=== PATIENT | female | born 1995 | race Hispanic/Latino ===

== ENCOUNTER 2017-10-15 19:44 | Emergency (ER) | payer OTHER, SELFPAY ==
--- NOTE | 2017-10-15 20:40 | RAD REPORT ---
EXAM DESCRIPTION: RAD - Forearm Left - 10/15/2017 8:35 pm CLINICAL HISTORY: Left forearm pain status post injury FINDINGS: No fracture is seen. A radiopaque foreign body is not seen
[2017-10-15] MEDS ORDERED: LIDOCAINE 1% 20 ML MDV ONE (21:07)
[2017-10-15] MEDS ORDERED: LIDOCAINE 1% MPF 5 ML VIAL ONE (21:18)
--- NOTE | 2017-10-15 21:30 | ER ---
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 Transition of care: patient was not received from another setting of care. Complicating Factors: There are no complicating factors for this patient. Onset of symptoms was October 15, 2017. Initial Sepsis Screen: Does the patient meet any 2 criteria? No. Patient's initial sepsis screen is negative. Does the patient have a suspected source of infection? No. Patient's initial sepsis screen is negative. Care prior to arrival: None. 19:50 Method Of Arrival: Ambulatory ak1 19:50 Acuity: BULL 4 ak1 Triage Assessment: 19:52 General: Appears in no apparent distress. Behavior is calm, cooperative. Pain: ak1 Complains of pain in left arm. EENT: No signs and/or symptoms were reported regarding the EENT system. Neuro: No deficits noted. Cardiovascular: No deficits noted. Respiratory: No deficits noted. GI: No signs and/or symptoms were reported involving the gastrointestinal system. : No signs and/or symptoms were reported regarding the genitourinary system. Derm: Wound noted left arm. Musculoskeletal: No signs and/or symptoms reported regarding the musculoskeletal system. Injury Description: Laceration sustained to left arm is clean, 2.6 to 7.5 cm long, not bleeding, was sustained 2-4 hours ago. is bleeding no active bleeding noted. 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 - Social history:: Smoking status: Patient/guardian denies using tobacco. Screenin:53 Abuse screen: Denies threats or abuse. Denies injuries from another. Nutritional ak1 screening: No deficits noted. Tuberculosis screening: No symptoms or risk factors identified. Fall Risk None identified. Assessment: 21:15 General: Appears in no apparent distress. Behavior is calm, cooperative, appropriate ea for age. Pain: Complains of pain in dorsal aspect of left forearm. Neuro: Level of Consciousness is awake, alert, obeys commands, Oriented to person, place, time, situation. Cardiovascular: Patient's skin is warm and dry. Respiratory: Airway is patent Respiratory effort is even, unlabored, Respiratory pattern is regular, symmetrical. Derm: laceration to left forearm. Injury Description: Laceration sustained to dorsal aspect of left forearm is 2.6 to 7.5 cm long. 21:37 Reassessment: Patient and/or family updated on plan of care and expected duration. Pain ea level reassessed. Patient is alert, oriented x 3, equal unlabored respirations, skin warm/dry/pink. Discharge instructions given to patient, verbalized the understanding of instruction. Vital Signs: 19:51 BP 116 / 66; Pulse 75; Resp 18; Temp 97.8(TE); Pulse Ox 100% on R/A; Weight 70.31 kg ak1 (R); Height 5 ft. 4 in. (162.56 cm) (R); Pain 10/10; 19:51 Body Mass Index 26.61 (70.31 kg, 162.56 cm) ak1 ED Course: 19:47 Patient arrived in ED. do 19:51 Triage completed. ak1 19:51 Arm band placed on Patient placed in waiting room, Patient notified of wait time. ak1 19:52 Elaine Marin [facility]-C [facility]. kb 19:52 Sammy Jose MD is Attending Physician. kb 19:54 Patient has correct armband on for positive identification. ak1 20:33 X-ray completed. Portable x-ray completed in exam room. Patient tolerated procedure la2 well. 20:34 XRAY Forearm LEFT In Process Unspecified. EDMS 21:16 Vidhya Adames RN is Primary Nurse. ea 21:31 No provider procedures requiring assistance completed. Patient did not have IV access ea during this emergency room visit. Administered Medications: 21:31 Drug: Lidocaine (1 %) 1 vials {Note: administered by provider.} Volume: 5 ml; Route: ea Infiltration; Outcome: 21:30 Discharge ordered by MD. celis 21:39 Discharged to home ambulatory. ea 21:39 Condition: improved 21:39 Discharge instructions given to patient, Instructed on discharge instructions, follow up and referral plans. Demonstrated understanding of instructions, follow-up care. 21:40 Patient left the ED. ea Signatures: Dispatcher [employer] EDPA Elaine Marin, DIE SET UP WORKER-C DIE SET UP WORKER-Augusta Davis RN RN Lynette Jay Elena RN RN Emi Carlisle2 Corrections: (The following items were deleted from the chart) 21:39 21:37 Reassessment: Patient and/or family updated on plan of care and expected ea duration. Pain level reassessed. Patient is alert, oriented x 3, equal unlabored respirations, skin warm/dry/pink. ea
--- NOTE | 2017-10-15 21:31 | EDPHYS ---
Physician Documentation [facility] Name: Batsheva Guerrero Age: 22 yrs Sex: Female : 1995 Arrival Date: 10/15/2017 Time: 19:47 Bed 12 Private MD: ED Physician Sammy Jose HPI: 10/15 21:35 This 22 yrs old Female presents to ER via Ambulatory with complaints of kb Laceration To Arm. 21:35 The patient has a laceration related to: cleaning up glass and accidentally cut herslef kb occurred at home, and there are no complicating factors. The injury was accidental. The laceration(s) is(are) located on the dorsal aspect of left forearm. Onset: The symptoms/episode began/occurred just prior to arrival. Associated signs and symptoms: The patient has no apparent associated signs or symptoms. The patient has not experienced similar symptoms in the past. The patient has not recently seen a physician. 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 - Social history:: Smoking status: Patient/guardian denies using tobacco. ROS: 21:34 Constitutional: Negative for fever, chills, and weight loss, Cardiovascular: Negative kb for chest pain, palpitations, and edema, Respiratory: Negative for shortness of breath, cough, wheezing, and pleuritic chest pain, Abdomen/GI: Negative for abdominal pain, nausea, vomiting, diarrhea, and constipation, MS/Extremity: Negative for injury and deformity, Neuro: Negative for headache, weakness, numbness, tingling, and seizure. 21:34 Skin: Positive for laceration(s), of the dorsal aspect of left forearm. Exam: 21:34 Constitutional: This is a well developed, well nourished patient who is awake, alert, kb and in no acute distress. Head/Face: Normocephalic, atraumatic. Chest/axilla: Normal chest wall appearance and motion. Nontender with no deformity. No lesions are appreciated. Cardiovascular: Regular rate and rhythm with a normal S1 and S2. No gallops, murmurs, or rubs. Normal PMI, no JVD. No pulse deficits. Respiratory: Lungs have equal breath sounds bilaterally, clear to auscultation and percussion. No rales, rhonchi or wheezes noted. No increased work of breathing, no retractions or nasal flaring. Abdomen/GI: Soft, non-tender, with normal bowel sounds. No distension or tympany. No guarding or rebound. No evidence of tenderness throughout. MS/ Extremity: Pulses equal, no cyanosis. Neurovascular intact. Full, normal range of motion. Neuro: Awake and alert, GCS 15, oriented to person, place, time, and situation. Cranial nerves II-XII grossly intact. Motor strength 5/5 in all extremities. Sensory grossly intact. Cerebellar exam normal. Normal gait. 21:34 Skin: injury, laceration(s), the wound is approximately 4 cm(s), of the dorsal aspect of left forearm, that can be described as clean, no foreign body, linear, without bleeding. Vital Signs: 19:51 BP 116 / 66; Pulse 75; Resp 18; Temp 97.8(TE); Pulse Ox 100% on R/A; Weight 70.31 kg ak1 (R); Height 5 ft. 4 in. (162.56 cm) (R); Pain 10/10; 19:51 Body Mass Index 26.61 (70.31 kg, 162.56 cm) ak1 Laceration: 21:29 Wound Repair of 4cm ( 1.6in ) subcutaneous laceration to dorsal aspect of left forearm. kb Linear shaped.. Distal neuro/vascular/tendon intact. Anesthesia: Wound infiltrated with 10 mls of 1% lidocaine. Wound prep: Extensive cleansing with hibiclenz by de, Wound irrigation with saline by de. Skin closed with 8 5-0 Prolene using interrupted sutures and sterile technique. Dressed with Neosporin. Patient tolerated well. MDM: 21:00 Patient medically screened. kb 21:29 Data reviewed: vital signs, nurses notes. Data interpreted: Pulse oximetry: on room air kb is 100 %. Interpretation: normal. Counseling: I had a detailed discussion with the patient and/or guardian regarding: the historical points, exam findings, and any diagnostic results supporting the discharge/admit diagnosis, radiology results, the need for outpatient follow up, a family practitioner, to return to the emergency department if symptoms worsen or persist or if there are any questions or concerns that arise at home. 10/15 19:53 Order name: XRAY Forearm LEFT; Complete Time: 20:43 ak1 10/15 21:04 Order name: Prolene, Sutures; Complete Time: 21:31 kb 10/15 21:04 Order name: Dressing - Wound; Complete Time: 21:31 kb 10/15 21:04 Order name: Gloves, Sterile; Complete Time: 21:31 kb 10/15 21:04 Order name: Setup Suture Tray; Complete Time: 21:31 kb Administered Medications: 21:31 Drug: Lidocaine (1 %) 1 vials {Note: administered by provider.} Volume: 5 ml; Route: ea Infiltration; Disposition: 10/16 01:35 Co-signature as Attending Physician, Sammy Jose MD. pkrebecca Disposition: 10/15/17 21:30 Discharged to Home. Impression: Laceration without foreign body of left forearm. - Condition is Stable. - Discharge Instructions: Laceration Care, Adult, [id number]. - Medication Reconciliation Form, Thank You Letter, Antibiotic Education, Prescription Opioid Use form. - Follow up: Emergency Department; When: As needed; Reason: Worsening of condition. Follow up: Private Physician; When: 2 - 3 days; Reason: Recheck today's complaints, Continuance of care, Re-evaluation by your physician. Signatures: Dispatcher [employer] EDElaine Turcios, Sammy Rodriguez MD MD [facility] Augusta Valero RN RN ak1 Vidhya Adames RN RN ea Corrections: (The following items were deleted from the chart) 10/15 21:40 21:30 10/15/2017 21:30 Discharged to Home. Impression: Laceration without foreign body ea of left forearm. Condition is Stable. Forms are Medication Reconciliation Form, Thank You Letter, Antibiotic Education, Prescription Opioid Use. Follow up: Emergency Department; When: As needed; Reason: Worsening of condition. Follow up: Private Physician; When: 2 - 3 days; Reason: Recheck today's complaints, Continuance of care, Re-evaluation by your physician. kb
[2017-10-15 21:49] VITALS: BP 116/66; TEMP 97.8; O2SAT 100
== END 2017-10-15 21:40 | disposition home or self-care (01) ==
LOC: ER 19:44
PROC: 0JQH0ZZ Repair Left Lower Arm Subcutaneous Tissue and Fascia, Open Approach (ICD-10-PCS; principal; 2017-10-15)
DX: S51.812A Laceration without foreign body of left forearm, initial encounter (principal); W25.XXXA Contact with sharp glass, initial encounter; Y93.E9 Activity, other interior property and clothing maintenance; Y92.009 Unspecified place in unspecified non-institutional (private) residence as the place of occurrence of the external cause
CPT/HCPCS: 99283

== ENCOUNTER 2018-09-09 03:15 | Inpatient (IN) | payer OTHER ==
[2018-09-09] MEDS ORDERED: PROMETHAZINE 25 MG/ML VIAL ONE (03:58)
[2018-09-09] MEDS ORDERED: BUTORPHANOL 1 MG/ML INJ ONE (03:58)
[2018-09-09] MEDS ORDERED: OXYTOCIN/LR 20 UNIT/1,000 ML BAG IV ONE (04:21)
[2018-09-09] MEDS ORDERED: METHYLERGONOVINE 0.2MG/ML AMP IM ONE (04:21)
[2018-09-09] MEDS ORDERED: BUTORPHANOL 1 MG/ML INJ IV PRN (04:25)
[2018-09-09] MEDS ORDERED: Ringers Lactate 1,000 ML IV PRN (04:25)
[2018-09-09] MEDS ORDERED: METHYLERGONOVINE 0.2MG/ML AMP IM PRN (04:25)
[2018-09-09] MEDS ORDERED: PROMETHAZINE 25 MG/ML VIAL IM PRN (04:25)
[2018-09-09 04:32] VITALS: BMI 32.5
[2018-09-09 04:37] LABS: RPR Titer ND
[2018-09-09 04:41] LABS: Absolute Lymphocytes (CBC) 1.8 K/uL (0.7-4.9); Absolute Monocytes 1.1 K/uL (0.1-1.3); Absolute Neutrophil 15.8 K/uL (1.8-8.0); Basophils % 0.1 % (0-1.3); Eosinophils % 0.4 % (0-4.4); Hematocrit 32.5 % (36.0-45.0); Lymphocytes % 9.6 % (15.3-44.8); MPV 10.6 fL (7.6-11.3); RBC Red Blood Cell Count 4.33 M/uL (3.86-4.86)
[2018-09-09 04:43] LABS: Urine Appearance TURBID; Urine Bilirubin NEGATIVE (NEG); Urine Blood 2+ (NEG); Urine Color YELLOW; Urine Glucose NEGATIVE (NEG); Urine Protein 2+ (NEG); Urine Specific Gravity 1.015 (1.005-1.030); Urine Urobilinogen 0.2 mg/dL (0.2-1.0); Urine pH 6.5 (5.0-7.0)
[2018-09-09 04:55] LABS: Urine Microscopic Reflex ORDER UMIC
[2018-09-09] MEDS ORDERED: OXYTOCIN/LR 20 UNITS/1,000 ML BAG IV SCH (05:00)
[2018-09-09] MEDS ORDERED: Ringers Lactate 1,000 ML IV SCH (05:00)
[2018-09-09 05:13] LABS: Urine Bacteria >50 /HPF (<20); Urine Culture Reflex Order NOT NEEDED; Urine RBC <5 /HPF (NONE SEEN)
[2018-09-09] MEDS ORDERED: LIDOCAINE 1% MPF 30 ML VIAL SQ ONE (06:03)
[2018-09-09] MEDS ORDERED: LIDOCAINE 1% MPF 30 ML VIAL ONE (06:14)
[2018-09-09] MEDS ORDERED: Oxycodone HCl/Acetaminophen 1 TAB TAB PO PRN ×2 (07:05)
[2018-09-09] MEDS ORDERED: DIPHENHYDRAMINE 25 MG TAB/CAP PO PRN (07:05)
[2018-09-09] MEDS ORDERED: DOCUSATE NA/SENNA CONC 1 TAB PO PRN (07:05)
[2018-09-09] MEDS ORDERED: BISACODYL 10 MG RECTAL SUPP RECT PRN (07:05)
--- NOTE | 2018-09-09 07:18 | PREOPHP ---
Date of Admission: 09/09/2018 2, para 1, 38 weeks 1 day, scheduled for induction late next week. Comes in, in active labor . Noted to be 5 to 6 cm on admission. Progressed well during the night. Used Lamaze breathing tech niques. When she reached approximately 6 to 7 requested and received 1 mg dose of Stadol IV, Phenerg an 25 IM. She is now 8 to 9 cm, 100% effaced, vertex, 0 station, rupture of membranes, clear fluid, FHTs normal, slightly decreased in reactivity since the Stadol, but this is expected. Fluid was shannon r. She is beta strep negative. Records are not available, but I always make sure patients know thei r strep status, and she knows her strep status. Anticipate delivery relatively soon. NATIVIDAD/ALICE Voice ID: [id number]
--- NOTE | 2018-09-09 07:39 | OP ---
Surgeon: Last Dennis MD Hospital Course: A 23-year-old, 2, para 1, 38 weeks and 1 day, came in, in active labor, 5 t o 6 cm on admission. During the night, progressed slowly, but well with IV Stadol 1 dose, Phenergan 25 mg IM 1 dose. At 8 to 9 cm, rupture of membranes, the patient went rapidly to complete, second st age of 5 to 10 minutes or less. Spontaneous vaginal delivery, and estimated 7+ pound male infant. A pgars 9 and 9. No episiotomy. No laceration. Schultze delivery of the placenta, which was inspecte d and noted be intact and normal. 350 cc estimated blood loss. The patient tolerated all procedures well. Rh positive. Immune to Rubella. Negative beta strep screen. Final Diagnoses: Term intrauterine at 38 weeks and 1 day. Spontaneous vaginal delivery. NATIVIDAD/ALICE Voice ID: [id number] Report ID: [id number]
[2018-09-09] MEDS ORDERED: OXYTOCIN/LR 20 UNIT/1,000 ML BAG IV SCH (08:00)
[2018-09-09] MEDS: IBUPROFEN 200 MG TAB PO PRN (19:20)
[2018-09-10] MEDS: IBUPROFEN 200 MG TAB PO PRN (05:10)
[2018-09-10 07:29] VITALS: TEMP 97.5
[2018-09-10 08:00] VITALS: BP 102/48
[2018-09-10 21:01] LABS: RPR (Rapid Plasma Reagin) NON-REACT (NON-REACT)
--- NOTE | 2018-09-11 08:37 | DS ---
Date of Discharge: 09/10/2018 Hospital Course: This is a 23-year-old 3, para 1, 38 weeks 1 day, came in active labor, 5 to 6 cm on admission. Progressed slowly using Lamaze breathing techniques. At approximately 8 to 9 cm , rupture of membranes was performed. Clear fluid. The patient went rapidly to complete second stag e of 10 minutes or less. Spontaneous vaginal delivery of a 6-pound 13-ounce male infant, Apgars 9 an d 9, or even 9 and 10. No episiotomy. No laceration. delivery of the placenta, which was inspected and noted to be intact and normal. 350 cc estimated blood loss. Patient tolerated all pr ocedures well. Rh positive, immune to Rubella. Negative beta strep screen. , is afebrile , ambulating and voiding. Lochia is normal. She has had her Tdap immunizations. Will be dismissed later this morning. She will report back to my office in 6 weeks for followup. To report any temper ature elevation of 100 degrees or greater, severe pain, heavy bleeding, or any other type of abnormal ities. Dismissed with tramadol for analgesia, although she may elect to take Motrin instead. Final Diagnoses: Term intrauterine , vaginal delivery at 38 weeks 1 day. NATIVIDAD/ALICE Voice ID: [id number] Report ID: [id number]
[2018-09-14 13:09] LABS: HBsAG Nonreactive (Nonreactive)
== END 2018-09-10 10:30 | disposition home or self-care (01) | DRG 807 ==
LOC: L&D 03:15 → 2ND-WC 03:42
PROVIDERS: ADMIT Specialist; ATTEND Specialist
PROC: 10E0XZZ Delivery of Products of Conception, External Approach (ICD-10-PCS; principal; 2018-09-09)
PROC: 10907ZC Drainage of Amniotic Fluid, Therapeutic from Products of Conception, Via Natural or Artificial Opening (ICD-10-PCS; 2018-09-09)
DX: O80 Encounter for full-term uncomplicated delivery (principal); Z37.0 Single live birth; Z3A.38 38 weeks gestation of pregnancy
CPT/HCPCS: 36415; 81003; 81015; 85025; 86592; 86901; 87340; J0595; J2210; J2550; J2590

== ENCOUNTER 2019-09-21 19:25 | Emergency (ER) | payer OTHER, SELFPAY ==
[2019-09-21] MEDS ORDERED: NA CHLORIDE 0.9% 1,000 ML ONE (19:56)
[2019-09-21] MEDS ORDERED: MECLIZINE HCL 12.5 MG TAB ONE (19:56)
[2019-09-21] MEDS ORDERED: ONDANSETRON 4 MG/2 ML VIAL ONE (19:56)
--- NOTE | 2019-09-21 20:08 | RAD REPORT ---
EXAM DESCRIPTION: RAD - Chest Single View - 09/21/2019 8:00 pm CLINICAL HISTORY: weakness Chest pain. COMPARISON: No comparisons FINDINGS: Portable technique limits examination quality. The lungs are grossly clear. The heart is normal in size. No displaced fractures. IMPRESSION: No acute intrathoracic process suspected.
--- NOTE | 2019-09-21 20:08 | RAD REPORT ---
EXAM DESCRIPTION: CT - Head Brain Wo Cont - 09/21/2019 8:00 pm CLINICAL HISTORY: dizziness, syncope Headache, drowsiness COMPARISON: HEAD BRAIN W O CONTRAST dated 05/16/2010 TECHNIQUE: All CT scans are performed using dose optimization technique as appropriate and may inclu de automated exposure control or mA/KV adjustment according to patient size. FINDINGS: No intracranial hemorrhage, hydrocephalus or extra-axial fluid collection.No areas of brai n edema or evidence of midline shift. The paranasal sinuses and mastoids are clear. The calvarium is intact. IMPRESSION: No acute intracranial abnormality.
[2019-09-21 21:11] LABS: Absolute Lymphocytes (CBC) 1.7 K/uL (0.7-4.9); Basophils % 0.5 % (0-1.3); Hematocrit 34.8 % (36.0-45.0); Lymphocytes % 13.5 % (15.3-44.8); MPV 8.9 fL (7.6-11.3); RBC Red Blood Cell Count 4.49 M/uL (3.86-4.86)
[2019-09-21 21:17] LABS: Protime INR 1.05
[2019-09-21 21:30] LABS: ALT/SGPT 15 U/L (12-78); AST/SGOT 14 U/L (15-37); Albumin 3.7 g/dL (3.4-5.0); Alkaline Phosphatase 55 U/L (45-117); BUN Blood Urea Nitrogen 13 mg/dL (7-18); Bicarbonate 26 mmol/L (21-32); Bilirubin Direct 0.1 mg/dL (0-0.2); Bilirubin Total 0.4 mg/dL (0.2-1.0); Glucose Level 84 mg/dL (74-106); Magnesium 2.2 mg/dL (1.8-2.4); NT PRO-BNP 83 pg/mL (<125); Potassium 3.6 mmol/L (3.5-5.1); Protein, Total 7.5 g/dL (6.4-8.2); Sodium Level 141 mmol/L (136-145); Troponin (Emerg Dept Use Only) < 0.02 ng/mL (0.0-0.045)
[2019-09-21] MEDS ORDERED: DIAZEPAM 10 MG/2 ML INJ SYRINGE ONE (21:50)
[2019-09-21 22:01] LABS: Urine Blood 1+ (NEG); Urine Glucose NEGATIVE (NEG); Urine Protein NEGATIVE (NEG); Urine Specific Gravity 1.015 (1.005-1.030); Urine pH 5.5 (5.0-7.0)
[2019-09-21 22:19] LABS: Urine Bacteria <20 /HPF (<20); Urine Culture Reflex Order NOT NEEDED; Urine Mucus 1+ /HPF (NONE SEEN); Urine RBC <5 /HPF (NONE SEEN)
--- NOTE | 2019-09-21 22:43 | EDPHYS ---
Physician Documentation [facility] Name: Batsheva Guerrero Age: 24 yrs Sex: Female : 1995 Arrival Date: 09/21/2019 Time: 19:26 Bed 15 Private MD: ED Physician Chandra De Santiago HPI: 09/20 19:35 This 24 yrs old Female presents to ER via Ambulatory with complaints of Passed jmm Out Prior To Arrival. 19:35 The patient has experienced syncope. Onset: The symptoms/episode began/occurred jmm acutely, just prior to arrival. Duration: The patient has had multiple episodes, that last an unknown period of time. Context: the episode(s) was witnessed, by co-worker(s). Associated injury: The patient did not suffer any apparent associated injury. This is a 24 year old female with no chronic medical conditions that presents to the ED with complaints of dizziness and 2 syncopal episodes which occurred today. Dizziness was acute onset and has had similar episodes in the past. Patient also complains of ongoing stress at home. Denies shortness of breath. Denies chest pain. Dizziness is described as the room spinning. . 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 - Social history:: Smoking status: Patient denies any tobacco usage or history of. Patient/guardian denies using alcohol, street drugs. ROS: 19:35 Constitutional: Negative for fever, chills, and weight loss, Cardiovascular: Negative jmm for chest pain, palpitations, and edema, Respiratory: Negative for shortness of breath, cough, wheezing, and pleuritic chest pain. 19:35 Neuro: Positive for dizziness, syncope. 19:35 All other systems are negative. Exam: 19:35 Constitutional: This is a well developed, well nourished patient who is awake, alert, jmm and in no acute distress. Head/Face: atraumatic. 19:35 Neck: Trachea midline, Supple Chest/axilla: Normal chest wall appearance and motion. Cardiovascular: Regular rate and rhythm. No edema appreciated Respiratory: Normal respirations, no respiratory distress appreciated Abdomen/GI: Non distended, soft 19:35 Eyes: Nystagmus: horizontal nystagmus is appreciated, fatigueable. 19:35 Cardiovascular: Rate: normal, Rhythm: regular, Pulses: no pulse deficits are appreciated. 19:35 Respiratory: the patient does not display signs of respiratory distress, Respirations: normal, Breath sounds: are clear throughout. 19:35 Neuro: Orientation: is normal, Mentation: is normal, Memory: is normal. 19:35 Psych: Behavior/mood is pleasant, cooperative. 22:40 ECG was reviewed by the Attending Physician. [facility] 22:40 Neuro: Cerebellar function: normal finger to nose testing, heel to hirsch testing is [facility] normal, Motor: is normal. Vital Signs: 19:31 BP 103 / 68; Pulse 89; Resp 16; Temp 98.2(O); Pulse Ox 100% on R/A; Weight 74.39 kg jb4 (R); Height 5 ft. 4 in. (162.56 cm) (R); Pain 0/10; 20:45 BP 102 / 68; Pulse 63; Resp 16; Pulse Ox 98% on R/A; jb4 21:30 BP 100 / 56; Pulse 61; Resp 16; Pulse Ox 100% on R/A; jb4 22:30 BP 94 / 72; Pulse 72; Resp 16; Pulse Ox 100% on R/A; jb4 19:31 Body Mass Index 28.15 (74.39 kg, 162.56 cm) jb4 MDM: 19:35 Patient medically screened. [facility] 22:40 Data reviewed: vital signs, nurses notes. Counseling: I had a detailed discussion with [facility] the patient and/or guardian regarding: the historical points, exam findings, and any diagnostic results supporting the discharge/admit diagnosis, lab results, radiology results, the need for outpatient follow up, to return to the emergency department if symptoms worsen or persist or if there are any questions or concerns that arise at home. ED course: Patient states feeling much better. Normal cerebellar exam. Dizziness is most likely peripheral. [place] syncope score stratifies this patient as low risk. Patient advised to follow up with ent for further evaluation of dizziness. Patient is otherwise given strict return precautions. Patient understood and agrees with the plan of care. . 09/20 19:38 Order name: Basic Metabolic Panel; Complete Time: 22:17 [facility] 09/20 19:38 Order name: CBC with Diff; Complete Time: 21:19 [facility] 09/20 19:38 Order name: LFT's; Complete Time: 22:17 [facility] 09/20 19:38 Order name: Magnesium; Complete Time: 22:17 [facility] 09/20 19:38 Order name: NT PRO-BNP; Complete Time: 22:17 [facility] 09/20 19:38 Order name: PT-INR; Complete Time: 22:17 [facility] 09/20 19:38 Order name: Troponin (emerg Dept Use Only); Complete Time: 22:17 [facility] 09/20 19:38 Order name: XRAY Chest (1 view); Complete Time: 20:16 [facility] 09/20 19:38 Order name: CT Head Brain wo Cont; Complete Time: 20:16 [facility] 09/20 21:24 Order name: Urine Microscopic Only; Complete Time: 22:20 [facility] 09/20 21:25 Order name: Urine Dipstick--Ancillary (enter results); Complete Time: 22:17 [facility] 09/20 21:25 Order name: Urine --Ancillary (enter results); Complete Time: 22:17 [facility] 09/20 19:38 Order name: EKG; Complete Time: 19:39 [facility] 09/20 19:38 Order name: Cardiac monitoring; Complete Time: 21:56 [facility] 09/20 19:38 Order name: EKG - Nurse/Tech; Complete Time: 21:07 [facility] 09/20 19:38 Order name: IV Saline Lock; Complete Time: 21: [facility] 09/20 19:38 Order name: Labs collected and sent; Complete Time: 21: [facility] 09/20 19:38 Order name: O2 Per Protocol; Complete Time: 21: [facility] 09/20 19:38 Order name: O2 Sat Monitoring; Complete Time: 21: [facility] 09/20 19:38 Order name: Urine Dipstick-Ancillary (obtain specimen); Complete Time: 21:24 [facility] 09/20 19:39 Order name: Urine Test (obtain specimen); Complete Time: 21:24 jmm EC:40 Rate is 62 beats/min. Rhythm is regular. QRS [place] is Normal. [place] interval is normal. QRS jmm interval is normal. QT interval is normal. No Q waves. T waves are Normal. No ST changes noted. Reviewed by me. Administered Medications: 19:57 Drug: Meclizine 50 mg Route: PO; jb4 21:11 Follow up: Response: No adverse reaction 21:07 Drug: NS 0.9% 1000 ml Route: IV; Rate: 1 bolus; Site: right antecubital; 21:54 Not Given (Patient Refused): Zofran (Ondansetron) 4 mg IVP once; over 2 minutes jb4 21:54 Drug: Valium 1 mg Route: IVP; Site: right antecubital; 22:15 Follow up: Response: No adverse reaction; Marked relief of symptoms jb4 Disposition: 09/21/19 22:42 Discharged to Home. Impression: Dizziness and giddiness, Syncope and collapse. - Condition is Stable. - Discharge Instructions: Dizziness, Syncope. - Prescriptions for Valium 5 mg Oral Tablet - take 1 tablet by ORAL route every 8 hours As needed; 20 tablet. - Medication Reconciliation Form, Thank You Letter, Antibiotic Education, Prescription Opioid Use form. - Follow up: Renate Ayoub MD; When: 2 - 3 days; Reason: Recheck today's complaints, Continuance of care, Re-evaluation by your physician. Addendum: 09/24/2019 07:38 Co-signature as Attending Physician, Chandra De Santiago MD I agree with the assessment and c eckert plan of care. Signatures: Dispatcher [employer] EDMN Chandra De Santiago MD MD cha Mickail, Joel, PA PA Moses Rao RN RN [facility] Leanne Costa RN RN Corrections: (The following items were deleted from the chart) 09/20 23:04 22:42 09/21/2019 22:42 Discharged to Home. Impression: Dizziness and giddiness; Syncope jb4 and collapse. Condition is Stable. Forms are Medication Reconciliation Form, Thank You Letter, Antibiotic Education, Prescription Opioid Use. Follow up: Renate Ayoub; When: 2 - 3 days; Reason: Recheck today's complaints, Continuance of care, Re-evaluation by your physician. [facility]
--- NOTE | 2019-09-21 22:43 | ER ---
Nurse's Notes [facility] Name: Batsheva Guerrero Age: 24 yrs Sex: Female : 1995 Arrival Date: 09/21/2019 Time: 19:26 Bed 15 Private MD: Diagnosis: Dizziness and giddiness;Syncope and collapse Presentation: 09/20 19:31 Chief complaint: Patient states: I was at work and felt weak and shaky and cold. I jb4 don't remember what happened but I woke up to someone knocking on the bathroom door. That was at 1300. It happened again at home around 1730. I just feel weak and dizzy like the room is spinning. 19:31 Coronavirus screen: Proceed with normal triage. Ebola Screen: No symptoms or risks jb4 identified at this time. Initial Sepsis Screen: Does the patient meet any 2 criteria? No. Patient's initial sepsis screen is negative. Does the patient have a suspected source of infection? No. Patient's initial sepsis screen is negative. Risk Assessment: Do you want to hurt yourself or someone else? Patient reports no desire to harm self or others. Onset of symptoms was September 21, 2019 at 13:00. Transition of care: patient was not received from another setting of care. 19:31 Method Of Arrival: Ambulatory jb4 19:31 Acuity: BULL 3 jb4 Triage Assessment: 21:11 General: Appears. 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 - Social history:: Smoking status: Patient denies any tobacco usage or history of. Patient/guardian denies using alcohol, street drugs. Screenin:10 Abuse screen: Denies threats or abuse. Nutritional screening: No deficits noted. Tuberculosis screening: No symptoms or risk factors identified. Fall Risk None identified. Assessment: 19:55 General: Appears in no apparent distress. comfortable, Behavior is calm, cooperative, jb4 appropriate for age. Pain: Denies pain. Neuro: Level of Consciousness is awake, alert, obeys commands, Oriented to person, place, time, situation. Cardiovascular: Patient's skin is warm and dry. Respiratory: Airway is patent Respiratory effort is even, unlabored, Respiratory pattern is regular, symmetrical. GI: No signs and/or symptoms were reported involving the gastrointestinal system. : No signs and/or symptoms were reported regarding the genitourinary system. EENT: No signs and/or symptoms were reported regarding the EENT system. Derm: Skin is intact, Skin is pink, warm \T\ dry. Musculoskeletal: Circulation, motion, and sensation intact. Range of motion: intact in all extremities. 19:59 Reassessment: pt to CT. jb4 21:00 Reassessment: Patient appears in no apparent distress at this time. Patient and/or jb4 family updated on plan of care and expected duration. Pain level reassessed. Patient is alert, oriented x 3, equal unlabored respirations, skin warm/dry/pink. 22:00 Reassessment: Patient appears in no apparent distress at this time. Patient and/or jb4 family updated on plan of care and expected duration. Pain level reassessed. Patient is alert, oriented x 3, equal unlabored respirations, skin warm/dry/pink. 23:00 Reassessment: Patient appears in no apparent distress at this time. Patient and/or jb4 family updated on plan of care and expected duration. Pain level reassessed. Patient is alert, oriented x 3, equal unlabored respirations, skin warm/dry/pink. Pt denies dizziness, reports feeling better. Verbalized understanding of D/C and follow up instructions. Denies questions or concerns. Ambulated out of ED with steady gait. Vital Signs: 19:31 BP 103 / 68; Pulse 89; Resp 16; Temp 98.2(O); Pulse Ox 100% on R/A; Weight 74.39 kg jb4 (R); Height 5 ft. 4 in. (162.56 cm) (R); Pain 0/10; 20:45 BP 102 / 68; Pulse 63; Resp 16; Pulse Ox 98% on R/A; jb4 21:30 BP 100 / 56; Pulse 61; Resp 16; Pulse Ox 100% on R/A; jb4 22:30 BP 94 / 72; Pulse 72; Resp 16; Pulse Ox 100% on R/A; jb4 19:31 Body Mass Index 28.15 (74.39 kg, 162.56 cm) jb4 ED Course: 19:26 Patient arrived in ED. ds1 19:31 Moses Sarah, RN is Primary Nurse. jb4 19:31 Mainor Gallardo PA is PHCP. [facility] 19:31 Chandra De Santiago MD is Attending Physician. [facility] 19:31 Arm band placed on right wrist. jb4 19:42 Triage completed. jb4 19:55 Patient has correct armband on for positive identification. Bed in low position. Call jb4 light in reach. Side rails up X 1. Pulse ox on. NIBP on. 19:59 CT completed. Patient tolerated procedure well. Patient moved to CT via stretcher. nv Patient moved back from CT. 20:01 XRAY Chest (1 view) In Process Unspecified. EDMS 20:01 CT Head Brain wo Cont In Process Unspecified. EDMS 21:10 Inserted saline lock: 20 gauge in right antecubital area, using aseptic technique. ah 22:42 Renate Ayoub MD is Referral Physician. [facility] 23:00 No provider procedures requiring assistance completed. IV discontinued, intact, jb4 bleeding controlled, No redness/swelling at site. Pressure dressing applied. Administered Medications: 19:57 Drug: Meclizine 50 mg Route: PO; jb4 21:11 Follow up: Response: No adverse reaction ah 21:07 Drug: NS 0.9% 1000 ml Route: IV; Rate: 1 bolus; Site: right antecubital; ah 21:54 Not Given (Patient Refused): Zofran (Ondansetron) 4 mg IVP once; over 2 minutes jb4 21:54 Drug: Valium 1 mg Route: IVP; Site: right antecubital; ah 22:15 Follow up: Response: No adverse reaction; Marked relief of symptoms jb Outcome: 22:42 Discharge ordered by . [facility] 23:00 Discharged to home ambulatory, with family. jb 23:00 Condition: stable 23:00 Discharge instructions given to patient, Instructed on discharge instructions, follow up and referral plans. medication usage, Demonstrated understanding of instructions, follow-up care, medications, Prescriptions given X 1. 23:04 Patient left the ED. [facility] Signatures: Dispatcher [employer] EDPR Mickail, LATOSHA Hayward Demi ds1 Moses Sarah, RN RN jb4 Rick Nicholas Amy RN RN ah
[2019-09-21 23:51] VITALS: TEMP 99.1
[2019-09-21 23:53] VITALS: BP 119/63; O2SAT 98
--- NOTE | 2019-09-22 07:59 | EKG ---
Test Date: 2019-09-21 Test Time: 21:05:19 Security Operations Analyst: Colin Costa MEASUREMENT RESULTS: Intervals: Rate: 62 MI: 146 QRSD: 72 QT: 432 QTc: 438 Grant: P: 32 MI: 146 QRS: 46 T: 5 INTERPRETIVE STATEMENTS: Normal sinus rhythm Normal ECG No previous ECG available for comparison Electronically Signed On 09-22-19 07:58:32 CDT by Romel Lara
== END 2019-09-21 23:04 | disposition home or self-care (01) ==
LOC: ER 19:25
DX: R55 Syncope and collapse (principal)
CPT/HCPCS: 36415; 70450; 71045; 80048; 80076; 81003; 81015; 81025; 83735; 83880; 84484; 85025; 85610; 93005; 96374; 99284; J2405; J3360; J7030; J8597

== ENCOUNTER 2021-03-04 14:04 | Emergency (ER) | payer SELFPAY ==
--- NOTE | 2021-03-04 14:50 | RAD REPORT ---
EXAM DESCRIPTION: CT - Head Brain Wo Cont - 03/04/2021 2:36 pm CLINICAL HISTORY: SEIZURE COMPARISON: Head Brain Wo Cont dated 09/21/2019; HEAD BRAIN W O CONTRAST dated 05/16/2010 TECHNIQUE: All CT scans are performed using dose optimization technique as appropriate and may inclu de automated exposure control or mA/KV adjustment according to patient size. FINDINGS: No intracranial hemorrhage, hydrocephalus or extra-axial fluid collection.No areas of brai n edema or evidence of midline shift. The paranasal sinuses and mastoids are clear. The calvarium is intact. IMPRESSION: No acute intracranial abnormality.
[2021-03-04 15:03] LABS: Urine Blood 1+ (Negative); Urine Glucose Negative (Negative); Urine Protein Negative (Negative); Urine pH 6.5 (5.0-7.0)
[2021-03-04 15:06] LABS: Absolute Lymphocytes (CBC) 1.5 K/uL (0.7-4.9); Basophils % 0.2 % (0-1.3); Hematocrit 37.6 % (36.0-45.0); Lymphocytes % 8.8 % (15.3-44.8); MPV 8.6 fL (7.6-11.3); RBC Red Blood Cell Count 4.77 M/uL (3.86-4.86)
[2021-03-04 15:10] LABS: Protime INR 0.98
[2021-03-04 15:22] LABS: ALT/SGPT 20 U/L (12-78); AST/SGOT 12 U/L (15-37); Albumin 3.6 g/dL (3.4-5.0); Alkaline Phosphatase 55 U/L (45-117); BUN Blood Urea Nitrogen 12 mg/dL (7-18); Bicarbonate 22 mmol/L (21-32); Bilirubin Direct < 0.1 mg/dL (0-0.2); Bilirubin Total 0.3 mg/dL (0.2-1.0); Creatine Phosphokinase 56 U/L (26-192); Glucose Level 108 mg/dL (74-106); Lipase 107 U/L (73-393); Magnesium 1.8 mg/dL (1.8-2.4); Potassium 3.3 mmol/L (3.5-5.1); Protein, Total 7.8 g/dL (6.4-8.2); Sodium Level 140 mmol/L (136-145); Troponin (Emerg Dept Use Only) < 0.02 ng/mL (0.0-0.045)
[2021-03-04 15:26] LABS: CKMB Creatine Kinase MB < 1.0 ng/mL (1.0-3.6)
[2021-03-04] MEDS ORDERED: LEVETIRACETAM 500 MG/5 ML VIAL IV ONE (15:26)
[2021-03-04] MEDS ORDERED: NA CHLORIDE 0.9% 100 ML ONE (15:27)
[2021-03-04] MEDS ORDERED: NA CHLORIDE 0.9% 0 ML ONE (15:27)
[2021-03-04 15:36] LABS: Barbiturates NEGATIVE (NEGATIVE); Benzodiazepines NEGATIVE (NEGATIVE); Cocaine NEGATIVE (NEGATIVE); METHAMPHETAM NEGATIVE (NEGATIVE); Methadone NEGATIVE (NEGATIVE); Opiates NEGATIVE (NEGATIVE); Phencyclidine NEGATIVE (NEGATIVE); THC Cannibis NEGATIVE (NEGATIVE)
[2021-03-04 15:52] LABS: White Blood Cell Scan OK (OK)
[2021-03-04 15:53] LABS: Blood Morphology Comment NOT SEEN (NOT SEEN); Platelet Estimate ADEQ
[2021-03-04] MEDS ORDERED: CEFTRIAXONE/SWI 1gm 1 GM/10 ML SYR ONE (16:35)
--- NOTE | 2021-03-04 17:12 | ER ---
Nurse's Notes [facility] Name: Batsheva Guerrero Age: 26 yrs Sex: Female : 1995 Arrival Date: 03/04/2021 Time: 14:08 Bed 17 Private MD: Diagnosis: Acute cystitis without hematuria;Other seizures Presentation: 03/04 14:12 Chief complaint: EMS states: pt was at work and had syncopal episode X 2, EMS arrived iw to scene and pt was hyperventilating, then had episode of full body convulsions that lasted 10-15 seconds, had a second episode , EMS gave Ativan 2 mg IVP, no other seizure like activity. Coronavirus screen: At this time, the client does not indicate any symptoms associated with coronavirus-19. Ebola Screen: Patient negative for fever greater than or equal to 101.5 degrees Fahrenheit, and additional compatible Ebola Virus Disease symptoms Patient denies exposure to infectious person. Patient denies travel to an Ebola-affected area in the 21 days before illness onset. No symptoms or risks identified at this time. Initial Sepsis Screen: Does the patient meet any 2 criteria? No. Patient's initial sepsis screen is negative. Does the patient have a suspected source of infection? No. Patient's initial sepsis screen is negative. Risk Assessment: Do you want to hurt yourself or someone else? Patient reports no desire to harm self or others. Onset of symptoms was March 04, 2021. 14:12 Method Of Arrival: EMS: [facility] iw 14:12 Acuity: BULL 3 iw 14:15 Chief complaint: EMS states: Seizure at work. Coronavirus screen: Vaccine status: kg Patient reports being unvaccinated. Client denies travel out of the [place] in the last 14 days. At this time, unable to obtain information related to travel outside the [place] At this time, the client does not indicate any symptoms associated with coronavirus-19. Ebola Screen: Patient negative for fever greater than or equal to 101.5 degrees Fahrenheit, and additional compatible Ebola Virus Disease symptoms Patient denies exposure to infectious person. Patient denies travel to an Ebola-affected area in the 21 days before illness onset. Initial Sepsis Screen: Does the patient meet any 2 criteria? HR > 90 bpm. No. Patient's initial sepsis screen is negative. Does the patient have a suspected source of infection? No. Patient's initial sepsis screen is negative. Risk Assessment: Do you want to hurt yourself or someone else? Patient reports no desire to harm self or others. Onset of symptoms was March 04, 2021. 14:15 Method Of Arrival: EMS: [facility] kg 14:15 Acuity: BULL 3 kg Triage Assessment: 14:15 General: Appears in no apparent distress. Behavior is calm, cooperative, appropriate kg for age, quiet. Pain: Complains of pain in Head Pain currently is 8 out of 10 on a pain scale. at worst was 8 out of 10 on a pain scale. level that patient reports is acceptable is 3 out of 10 on a pain scale. EENT: No deficits noted. Neuro: Level of Consciousness is awake, alert, obeys commands, lethargic, Oriented to person, place, time, situation, Appropriate for age Speech is normal, Pupils are PERRLA. Neuro: Reports dizziness, headache. Cardiovascular: No deficits noted. Respiratory: No deficits noted. GI: No deficits noted. : No deficits noted. Derm: No deficits noted. Musculoskeletal: No deficits noted. 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 - Social history:: Smoking status: Patient denies any tobacco usage or history of. Patient uses. - Family history:: not pertinent. Screenin:20 Abuse screen: Denies threats or abuse. Denies injuries from another. Nutritional kg screening: No deficits noted. Tuberculosis screening: No symptoms or risk factors identified. Fall Risk None identified. Assessment: 16:00 Reassessment: See triage assessment. kg Vital Signs: 14:15 BP 120 / 87; Pulse 102; Resp 18; Temp 98.6(O); Pulse Ox 100% on R/A; Weight 67.13 kg; kg Height 5 ft. 4 in. (162.56 cm); Pain 8/10; 15:15 BP 110 / 78; Pulse 110; Resp 25; Pulse Ox 100% on R/A; kg 16:15 BP 99 / 76; Pulse 99; Resp 24; Pulse Ox 100% ; kg 17:15 BP 96 / 48; Pulse 86; Resp 26; Pulse Ox 100% on R/A; kg 17:59 BP 98 / 54; Pulse 80; Resp 20; Pulse Ox 100% on R/A; Pain 5/10; kg 14:15 Body Mass Index 25.40 (67.13 kg, 162.56 cm) kg Chemult Coma Score: 14:15 Eye Response: spontaneous(4). Verbal Response: oriented(5). Motor Response: obeys kg commands(6). Total: 15. ED Course: 14:08 Patient arrived in ED. iw 14:15 Amelia Page, RN is Primary Nurse. kg 14:16 Triage completed. iw 14:16 Arm band placed on. iw 14:20 Patient has correct armband on for positive identification. kg 14:20 No provider procedures requiring assistance completed. Maintain EMS IV. Dressing kg intact. Good blood return noted. Site clean \T\ dry. Gauge \T\ site: 20 R AC. 14:21 Seizure precautions initiated. kg 14:22 Michael Pearson MD is Attending Physician. ma2 14:36 CT Head Brain wo Cont In Process Unspecified. EDMS 14:48 Troponin (emerg Dept Use Only) Sent. kg 14:48 Ptt, Activated Sent. kg 14:49 Protime (+inr) Sent. kg 14:49 Magnesium Sent. kg 14:49 Lipase Sent. kg 14:49 Hepatic Function Sent. kg 14:49 Ckmb Sent. kg 14:49 CPK Sent. kg 14:49 CBC with Diff Sent. kg 14:49 Basic Metabolic Panel Sent. kg 15:16 UDS Sent. kg 17:59 IV discontinued, intact, bleeding controlled, No redness/swelling at site. Pressure kg dressing applied. Administered Medications: 15:16 Drug: NS 0.9% 1000 ml Route: IV; Rate: 1 bolus; Site: right antecubital; kg 16:44 Follow up: Response: No adverse reaction; IV Status: Completed infusion; IV Intake: kg 1000ml 15:16 Drug: Keppra (levETIRAcetam) 1000 mg Route: IV; Rate: calculated rate; Site: right kg antecubital; 16:44 Follow up: IV Status: Completed infusion; IV Intake: 110ml kg 16:44 Drug: Rocephin (cefTRIAXone) 1 grams Route: IV; Rate: calculated rate; Site: right kg antecubital; 16:45 Follow up: Response: No adverse reaction; IV Status: Completed infusion; IV Intake: 10mlkg Intake: 16:44 IV: 110ml; Total: 110ml. kg 16:44 IV: 1000ml; Total: 1110ml. kg 16:45 IV: 10ml; Total: 1120ml. kg Outcome: 17:11 Discharge ordered by MD. burk 17:59 Discharged to home ambulatory, with friend. kg 17:59 Condition: improved 17:59 Discharge instructions given to patient, friend, Instructed on discharge instructions, follow up and referral plans. Demonstrated understanding of instructions, follow-up care, medications, Prescriptions given X 2. 18:00 Patient left the ED. kg Signatures: Dispatcher [employer] Bessie Myers, Michael David RN, MD MD ma2 Graham, Kristen, RN RN kg
--- NOTE | 2021-03-04 17:12 | EDPHYS ---
Physician Documentation [facility] Name: Batsheva Guerrero Age: 26 yrs Sex: Female : 1995 Arrival Date: 03/04/2021 Time: 14:08 Bed 17 Private MD: ED Physician Michael Pearson HPI: 03/04 14:39 This 26 yrs old Female presents to ER via EMS with complaints of Probable ma2 Seizure. 14:39 The patient presents after having a single isolated seizure. Seizure onset: just prior ma2 to arrival. Seizure Hx: the patient has no previous seizure history. Associated injury: The patient did not suffer any apparent associated injury. Current symptoms: Currently, the patient is not experiencing any symptoms. The patient has not experienced similar symptoms in the past. 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 - Social history:: Smoking status: Patient denies any tobacco usage or history of. Patient uses. - Family history:: not pertinent. ROS: 14:39 Constitutional: Negative for fever, chills, and weight loss. ma2 14:39 All other systems are negative. Exam: 14:39 Constitutional: This is a well developed, well nourished patient who is awake, alert, ma2 and in no acute distress. Head/Face: Normocephalic, atraumatic. Eyes: Pupils equal round and reactive to light, extra-ocular motions intact. Lids and lashes normal. Conjunctiva and sclera are non-icteric and not injected. Cornea within normal limits. Periorbital areas with no swelling, redness, or edema. ENT: Nares patent. No nasal discharge, no septal abnormalities noted. Tympanic membranes are normal and external auditory canals are clear. Oropharynx with no redness, swelling, or masses, exudates, or evidence of obstruction, uvula midline. Mucous membranes moist. Neck: Trachea midline, no thyromegaly or masses palpated, and no cervical lymphadenopathy. Supple, full range of motion without nuchal rigidity, or vertebral point tenderness. No Meningismus. Chest/axilla: Normal chest wall appearance and motion. Nontender with no deformity. No lesions are appreciated. Cardiovascular: Regular rate and rhythm with a normal S1 and S2. No gallops, murmurs, or rubs. Normal PMI, no JVD. No pulse deficits. Respiratory: Lungs have equal breath sounds bilaterally, clear to auscultation and percussion. No rales, rhonchi or wheezes noted. No increased work of breathing, no retractions or nasal flaring. Abdomen/GI: Soft, non-tender, with normal bowel sounds. No distension or tympany. No guarding or rebound. No evidence of tenderness throughout. Back: No spinal tenderness. No costovertebral tenderness. Full range of motion. Skin: Warm, dry with normal turgor. Normal color with no rashes, no lesions, and no evidence of cellulitis. MS/ Extremity: Pulses equal, no cyanosis. Neurovascular intact. Full, normal range of motion. Neuro: Awake and alert, GCS 15, oriented to person, place, time, and situation. Cranial nerves II-XII grossly intact. Motor strength 5/5 in all extremities. Sensory grossly intact. Cerebellar exam normal. Normal gait. Vital Signs: 14:15 BP 120 / 87; Pulse 102; Resp 18; Temp 98.6(O); Pulse Ox 100% on R/A; Weight 67.13 kg; kg Height 5 ft. 4 in. (162.56 cm); Pain 8/10; 15:15 BP 110 / 78; Pulse 110; Resp 25; Pulse Ox 100% on R/A; kg 16:15 BP 99 / 76; Pulse 99; Resp 24; Pulse Ox 100% ; kg 17:15 BP 96 / 48; Pulse 86; Resp 26; Pulse Ox 100% on R/A; kg 17:59 BP 98 / 54; Pulse 80; Resp 20; Pulse Ox 100% on R/A; Pain 5/10; kg 14:15 Body Mass Index 25.40 (67.13 kg, 162.56 cm) kg Ehrhardt Coma Score: 14:15 Eye Response: spontaneous(4). Verbal Response: oriented(5). Motor Response: obeys kg commands(6). Total: 15. MDM: 14:22 Patient medically screened. ma2 14:39 Differential diagnosis: cerebral vascular accident, drug overdose, cardiac arrhythmia, ma2 seizure, TIA. 17:11 Data reviewed: vital signs, nurses notes. Counseling: I had a detailed discussion with [facility] the patient and/or guardian regarding: the historical points, exam findings, and any diagnostic results supporting the discharge/admit diagnosis, the presence of at least one elevated blood pressure reading (>120/80) during this emergency department visit, the need for outpatient follow up. Response to treatment: the patient's symptoms have markedly improved after treatment. 03/04 14:23 Order name: Basic Metabolic Panel; Complete Time: 16: [facility] 03/04 14:23 Order name: CBC with Diff; Complete Time: 16: [facility] 03/04 14:23 Order name: CPK; Complete Time: 16: [facility] 03/04 14:23 Order name: Ckmb; Complete Time: 16: [facility] 03/04 14:23 Order name: Hepatic Function; Complete Time: 16: [facility] 03/04 14:23 Order name: Lipase; Complete Time: 16: [facility] 03/04 14:23 Order name: Magnesium; Complete Time: 16: [facility] 03/04 14:23 Order name: Protime (+inr); Complete Time: 16: [facility] 03/04 14:23 Order name: Ptt, Activated; Complete Time: 16: [facility] 03/04 14:23 Order name: Troponin (emerg Dept Use Only); Complete Time: 16: [facility] 03/04 14:23 Order name: UDS; Complete Time: 16: [facility] 03/04 15:03 Order name: Urine Dipstick-Ancillary; Complete Time: 15:10 [facility] 03/04 15:05 Order name: Urine --Ancillary (enter results) bd 03/04 15:53 Order name: CBC Smear Scan; Complete Time: 16:09 [facility] 03/04 14:23 Order name: CT Head Brain wo Cont; Complete Time: 15:10 [facility] 03/04 14:23 Order name: Cardiac monitoring; Complete Time: 14:49 [facility] 03/04 14:23 Order name: IV Saline Lock; Complete Time: 14:49 [facility] 03/04 14:23 Order name: Labs collected and sent; Complete Time: 14:49 [facility] 03/04 14:23 Order name: NPO; Complete Time: 14:49 [facility] 03/04 14:23 Order name: O2 Per Protocol; Complete Time: 14:49 [facility] 03/04 14:23 Order name: O2 Sat Monitoring; Complete Time: 14:49 or03/04 14:23 Order name: Urine Dipstick-Ancillary (obtain specimen); Complete Time: 15:16 [facility] 03/04 14:23 Order name: Urine Test (obtain specimen); Complete Time: 15:16 [facility] 03/04 17:44 Order name: Urine Dipstick-Ancillary EDMS Administered Medications: 15:16 Drug: NS 0.9% 1000 ml Route: IV; Rate: 1 bolus; Site: right antecubital; kg 16:44 Follow up: Response: No adverse reaction; IV Status: Completed infusion; IV Intake: kg 1000ml 15:16 Drug: Keppra (levETIRAcetam) 1000 mg Route: IV; Rate: calculated rate; Site: right kg antecubital; 16:44 Follow up: IV Status: Completed infusion; IV Intake: 110ml kg 16:44 Drug: Rocephin (cefTRIAXone) 1 grams Route: IV; Rate: calculated rate; Site: right kg antecubital; 16:45 Follow up: Response: No adverse reaction; IV Status: Completed infusion; IV Intake: 10mlkg Disposition Summary: 03/04/21 17:11 Discharge Ordered Location: Home ma2 Condition: Stable ma2 Diagnosis - Acute cystitis without hematuria ma2 - Other seizures ma2 Followup: ma2 - With: Private Physician - When: Tomorrow - Reason: If symptoms return, Continuance of care Discharge Instructions: - Discharge Summary Sheet ma2 - Seizure, Adult ma2 - Urinary Tract Infection, Adult, [id number] ma2 Forms: - Medication Reconciliation Form ma2 - Thank You Letter ma2 - Antibiotic Education ma2 - Prescription Opioid Use ma2 Prescriptions: - Keppra 500 mg Oral Tablet - take 1 tablet by ORAL route every 12 hours; 20 tablet; Refills: 0, Product ma2 Selection Permitted - Bactrim DS 800-160 mg Oral Tablet - take 1 tablet by ORAL route every 12 hours for 7 days; 14 tablet; Refills: 0, ma2 Product Selection Permitted Signatures: Dispatcher [employer] EDBessie Caban RN RN Michael Pearson MD MD ma2 Amelia Page, RN RN kg
[2021-03-04 17:45] LABS: Urine Blood 1+ (Negative); Urine Glucose Negative (Negative); Urine Protein Negative (Negative); Urine Specific Gravity 1.015 (1.005-1.030); Urine pH 6.5 (5.0-7.0)
[2021-03-04 18:32] VITALS: TEMP 98.6; O2SAT 100
[2021-03-04 18:37] VITALS: BP 98/54
[2021-03-04] MEDS ORDERED: NA CHLORIDE 0.9% 1,000 ML ONE (23:42)
[2021-03-04] MEDS ORDERED: DIPHENHYDRAMINE 50 MG/ML VIAL ONE (23:42)
[2021-03-04] MEDS ORDERED: METOCLOPRAMIDE 10 MG/2mL INJ ONE (23:42)
== END 2021-03-04 18:00 | disposition home or self-care (01) ==
LOC: ER 14:04
DX: G40.89 Other seizures (principal); N30.00 Acute cystitis without hematuria
CPT/HCPCS: 36415; 70450; 80048; 80076; 80307; 81003; 81025; 82550; 82553; 83690; 83735; 84484; 85025; 85610; 85730; 96365; 96375; 99284; J0696; J1200; J1953; J2765; J7030

== ENCOUNTER 2021-03-06 20:21 | Emergency (ER) | payer SELFPAY ==
[2021-03-06 21:09] LABS: Protime INR 0.99
[2021-03-06 21:31] LABS: ALT/SGPT 21 U/L (12-78); AST/SGOT 15 U/L (15-37); Albumin 3.4 g/dL (3.4-5.0); Alkaline Phosphatase 53 U/L (45-117); BUN Blood Urea Nitrogen 12 mg/dL (7-18); Bicarbonate 24 mmol/L (21-32); Bilirubin Direct < 0.1 mg/dL (0-0.2); Bilirubin Total 0.2 mg/dL (0.2-1.0); Glucose Level 101 mg/dL (74-106); Potassium 3.5 mmol/L (3.5-5.1); Protein, Total 7.3 g/dL (6.4-8.2); Sodium Level 141 mmol/L (136-145)
--- NOTE | 2021-03-06 21:31 | RAD REPORT ---
EXAM DESCRIPTION: CT - Head Brain Wo Cont - 03/06/2021 9:25 pm CLINICAL HISTORY: SEIZURE COMPARISON: Head Brain Wo Cont dated 03/04/2021; Head Brain Wo Cont dated 09/21/2019 TECHNIQUE: All CT scans are performed using dose optimization technique as appropriate and may inclu de automated exposure control or mA/KV adjustment according to patient size. FINDINGS: No intracranial hemorrhage, hydrocephalus or extra-axial fluid collection.No areas of brai n edema or evidence of midline shift. The paranasal sinuses and mastoids are clear. The calvarium is intact. IMPRESSION: No acute intracranial abnormality. No change compared with 03/04/2021 .
[2021-03-06 21:35] LABS: Basophils % 0.4 % (0-1.3); Lymphocytes % 18.4 % (15.3-44.8); MPV 8.6 fL (7.6-11.3)
[2021-03-06] MEDS ORDERED: LEVETIRACETAM 500 MG/5 ML VIAL IV ONE (21:38)
[2021-03-06 22:26] LABS: Urine Blood 3+ (Negative); Urine Glucose Negative (Negative); Urine Protein 1+ (Negative); Urine Specific Gravity 1.015 (1.005-1.030)
[2021-03-06 23:01] LABS: Urine Specific Gravity/Preg 1.015 (1.005-1.030)
[2021-03-06 23:18] LABS: Barbiturates NEGATIVE (NEGATIVE); Benzodiazepines NEGATIVE (NEGATIVE); Cocaine NEGATIVE (NEGATIVE); METHAMPHETAM NEGATIVE (NEGATIVE); Methadone NEGATIVE (NEGATIVE); Opiates NEGATIVE (NEGATIVE); Phencyclidine NEGATIVE (NEGATIVE); THC Cannibis NEGATIVE (NEGATIVE)
--- NOTE | 2021-03-06 23:36 | ER ---
Nurse's Notes [facility] Name: Batsheva Guerrero Age: 26 yrs Sex: Female : 1995 Arrival Date: 03/06/2021 Time: 20:25 Bed 7 Private MD: Diagnosis: Seizure, Medication non compliance;Depression;Anxiety;UTI/ Urinary tract infection, site not specified Presentation: 03/06 23:37 Chief complaint: EMS states: pt was reported to have had a seizure at [employer] had mr2 similar incident 2 days ago no history of prior seizure. Coronavirus screen: Vaccine status: Patient reports receiving the 2nd dose of the covid vaccine. Ebola Screen: Patient negative for fever greater than or equal to 101.5 degrees Fahrenheit, and additional compatible Ebola Virus Disease symptoms Patient denies exposure to infectious person. No symptoms or risks identified at this time. Initial Sepsis Screen: Does the patient meet any 2 criteria? No. Patient's initial sepsis screen is negative. Initial Sepsis Screen: Does the patient have a suspected source of infection? No. Patient's initial sepsis screen is negative. Risk Assessment: Do you want to hurt yourself or someone else? Patient reports no desire to harm self or others. Onset of symptoms was March 06, 2021 at 19:00. 23:37 Method Of Arrival: EMS: [facility] mr2 23:37 Acuity: BULL 3 mr2 Triage Assessment: 23:42 General: Appears comfortable, well groomed, well nourished, Behavior is calm, mr2 cooperative, drowsy. Pain: Denies pain. Neuro: No deficits noted. Historical: - Allergies: 23:42 No Known Allergies; mr2 - Immunization history:: Adult Immunizations up to date. - Social history:: Smoking status: Patient/guardian denies using tobacco products. Screenin:47 Abuse screen: Denies threats or abuse. Denies injuries from another. Nutritional mr2 screening: No deficits noted. Tuberculosis screening: No symptoms or risk factors identified. Fall Risk None identified. Vital Signs: 20:31 BP 117 / 59; Pulse 98; Resp 18; Temp 98.0(O); Pulse Ox 100% on R/A; Weight 67.13 kg; oe Height 5 ft. 4 in. (162.56 cm); Pain 8/10; 23:47 BP 124 / 64; Pulse 88; Resp 17; Temp 98.2; Pulse Ox 99% on R/A; Pain 1/10; mr2 20:31 Body Mass Index 25.40 (67.13 kg, 162.56 cm) oe Dee Coma Score: 23:42 Eye Response: spontaneous(4). Verbal Response: oriented(5). Motor Response: obeys mr2 commands(6). Total: 15. ED Course: 20:25 Patient arrived in ED. cf2 20:31 Papito Bridges, KIA is Primary Nurse. mr2 20:32 Prosper Flores MD is Attending Physician. [facility] 21:25 CT Head Brain wo Cont In Process Unspecified. EDMS 22:53 Urine Drug Screen Sent. 23:34 Pierre Hobson MD is Referral Physician. [facility] 23:34 Cameron Cordero MD is Referral Physician. 7 23:41 Triage completed. mr2 23:45 Arm band placed on right wrist. mr2 23:46 Acetaminophen Sent. mr2 23:46 Basic Metabolic Panel Sent. mr2 Administered Medications: 21:25 Drug: Keppra (levETIRAcetam) 1000 mg Route: IV; Rate: per protocol; Site: right mr2 antecubital; 23:37 Drug: KeFLEX (cephalexin) 500 mg Route: PO; mr2 Outcome: 23:36 Discharge ordered by . [facility] 23:49 Patient left the ED. mr2 Signatures: Dispatcher [employer] EDGA Dioni Mendoza Elena RN Roberta Broussard ea 2 Prosper Flores MD MD [facility] Ppaito Bridges RN RN mr2 Corrections: (The following items were deleted from the chart) 23:42 23:41 PMHx: Anemia; mr2 mr2
--- NOTE | 2021-03-06 23:37 | EDPHYS ---
Physician Documentation [facility] Name: Batsheva Guerrero Age: 26 yrs Sex: Female : 1995 Arrival Date: 03/06/2021 Time: 20:25 Bed 7 Private MD: ED Physician Prosper Flores HPI: 03/06 20:30 This 26 yrs old Female presents to ER via Unassigned with complaints of mh7 Probable Seizure. 20:30 The patient presents after having a possible seizure episode, Patient not sure if she mh7 had a seizure, the episode(s) was witnessed, by a bystander. Character of seizure(s): Loss of consciousness: it is not known if the patient experienced loss of consciousness, Motor activity: the motor activity is unknown, Incontinence: none, Apnea: it is not know whether or not the patient experienced apnea, Circulation: it is unknown whether or not the patient experienced a disturbance in pulse, Eye movements: are unknown. Seizure onset: today. Context: the seizure(s) was witnessed, by a bystander, occurred [employer], occurred while the patient was Anxiety episode. Contributing factors: missed recent doses of medications. Seizure Hx: Last seizure: The patient's last seizure was approximately 2 day(s) ago. Associated injury: The patient did not suffer any apparent associated injury. [facility] The patient has been recently seen at the [facility], this week. Patient states that she was at [employer] and had an anxiety episode. She states that anxiety episode was due to thinking about situation with her children's father. She also reports some depression over the past few days also due to situation with children's father. She does not remember events that are having anxiety episode. She denies any injuries. She denies any headache, chest pain, abdominal pain, fever, cough, shortness of breath, nausea, vomiting, dizziness, numbness/tingling, or weakness. She denies any suicidal or homicidal ideation. She denies any auditory or visual hallucinations.. Historical: - Allergies: 23:42 No Known Allergies; mr2 - Immunization history:: Adult Immunizations up to date. - Social history:: Smoking status: Patient/guardian denies using tobacco products. ROS: 20:30 Constitutional: Negative for fever, chills, and weight loss, Eyes: Negative for injury, mh7 pain, redness, and discharge, ENT: Negative for injury, pain, and discharge, Neck: Negative for injury, pain, and swelling, Cardiovascular: Negative for chest pain, palpitations, and edema, Respiratory: Negative for shortness of breath, cough, wheezing, and pleuritic chest pain, Abdomen/GI: Negative for abdominal pain, nausea, vomiting, diarrhea, and constipation, Back: Negative for injury and pain, : Negative for injury, bleeding, discharge, and swelling, MS/Extremity: Negative for injury and deformity, Skin: Negative for injury, rash, and discoloration, Allergy/Immunology: Negative for hives, rash, and allergies, Endocrine: Negative for neck swelling, polydipsia, polyuria, polyphagia, and marked weight changes. Exam: 20:30 Constitutional: This is a well developed, well nourished patient who is awake, alert, mh7 and in no acute distress. Head/Face: Normocephalic, atraumatic. Eyes: Pupils equal round and reactive to light, extra-ocular motions intact. Lids and lashes normal. Conjunctiva and sclera are non-icteric and not injected. Cornea within normal limits. Periorbital areas with no swelling, redness, or edema. Neck: Trachea midline, no thyromegaly or masses palpated, and no cervical lymphadenopathy. Supple, full range of motion without nuchal rigidity, or vertebral point tenderness. No Meningismus. Chest/axilla: Normal chest wall appearance and motion. Nontender with no deformity. No lesions are appreciated. Cardiovascular: Regular rate and rhythm with a normal S1 and S2. No gallops, murmurs, or rubs. Normal PMI, no JVD. No pulse deficits. Respiratory: Lungs have equal breath sounds bilaterally, clear to auscultation and percussion. No rales, rhonchi or wheezes noted. No increased work of breathing, no retractions or nasal flaring. Abdomen/GI: Soft, non-tender, with normal bowel sounds. No distension or tympany. No guarding or rebound. No evidence of tenderness throughout. Back: No spinal tenderness. No costovertebral tenderness. Full range of motion. Skin: Warm, dry with normal turgor. Normal color with no rashes, no lesions, and no evidence of cellulitis. MS/ Extremity: Pulses equal, no cyanosis. Neurovascular intact. Full, normal range of motion. Neuro: Awake and alert, GCS 15, oriented to person, place, time, and situation. Cranial nerves II-XII grossly intact. Motor strength 5/5 in all extremities. Sensory grossly intact. Cerebellar exam normal. Normal gait. 20:30 Psych: Behavior/mood is depressed, Affect is calm, Oriented to person, place, time, Patient has no thoughts/intents to harm self or others. Judgement / Insight is normal. Memory is normal. Delusions/hallucinations are not present. Vital Signs: 20:31 BP 117 / 59; Pulse 98; Resp 18; Temp 98.0(O); Pulse Ox 100% on R/A; Weight 67.13 kg; oe Height 5 ft. 4 in. (162.56 cm); Pain 8/10; 23:47 BP 124 / 64; Pulse 88; Resp 17; Temp 98.2; Pulse Ox 99% on R/A; Pain 1/10; mr2 20:31 Body Mass Index 25.40 (67.13 kg, 162.56 cm) oe [place] Coma Score: 23:42 Eye Response: spontaneous(4). Verbal Response: oriented(5). Motor Response: obeys mr2 commands(6). Total: 15. MDM: 23:31 Differential diagnosis: drug overdose, cardiac arrhythmia, seizure, Anxiety, mh7 depression. Data reviewed: vital signs, nurses notes, EMS record, old medical records, lab test result(s), CBC, drug level(s), electrolytes, urinalysis, urine drug screen, UPT: negative. Data interpreted: Pulse oximetry: on room air is 100 %. Interpretation: normal. Counseling: I had a detailed discussion with the patient and/or guardian regarding: the historical points, exam findings, and any diagnostic results supporting the discharge/admit diagnosis, lab results, radiology results, the need for outpatient follow up, a neurologist, a psychiatrist, to return to the emergency department if symptoms worsen or persist or if there are any questions or concerns that arise at home. Response to treatment: the patient's symptoms have resolved after treatment, the patient's blood pressure is in an acceptable range, mental status has returned to baseline, the patient no longer shows bradycardia, the patient is not short of breath, the patient is not tachycardic, the patient's pain is gone, the patient's temperature has normalized. 23:36 Patient medically screened. [facility] 03/06 20:40 Order name: Acetaminophen [facility] 03/06 20:40 Order name: Basic Metabolic Panel [facility] 03/06 20:40 Order name: CBC with Diff; Complete Time: 21:39 [facility] 03/06 20:40 Order name: ETOH Level; Complete Time: 21:39 [facility] 03/06 20:40 Order name: Hepatic Function; Complete Time: 21:39 [facility] 03/06 20:40 Order name: PT-INR; Complete Time: 21:39 [facility] 03/06 20:40 Order name: Ptt, Activated; Complete Time: 21:39 [facility] 03/06 20:40 Order name: Salicylate; Complete Time: 21:39 [facility] 03/06 20:40 Order name: Urine Drug Screen; Complete Time: 23:29 [facility] 03/06 20:41 Order name: Acetaminophen Level; Complete Time: 21:39 [facility] 03/06 20:54 Order name: CT Head Brain wo Cont; Complete Time: 21:39 [facility] 03/06 21:32 Order name: Basic Metabolic Panel; Complete Time: 21:39 [facility] 03/06 22:25 Order name: Urine Dipstick-Ancillary; Complete Time: 22:29 [facility] 03/06 22:29 Order name: Urine --Ancillary (enter results); Complete Time: 23:14 [facility] 03/06 20:40 Order name: EKG; Complete Time: 20:41 [facility] 03/06 20:40 Order name: EKG - Nurse/Tech; Complete Time: 23:46 [facility] 03/06 20:40 Order name: IV Saline Lock; Complete Time: 23:46 [facility] 03/06 20:40 Order name: Labs collected and sent; Complete Time: 23:46 [facility] 03/06 20:40 Order name: Suicide Screening ([place]); Complete Time: 23:46 [facility] 03/06 20:40 Order name: Urine Dipstick-Ancillary (obtain specimen); Complete Time: 23:46 [facility] 03/06 20:40 Order name: Urine Test (obtain specimen); Complete Time: 23:46 [facility] Administered Medications: 21:25 Drug: Keppra (levETIRAcetam) 1000 mg Route: IV; Rate: per protocol; Site: right mr2 antecubital; 23:37 Drug: KeFLEX (cephalexin) 500 mg Route: PO; mr2 Disposition Summary: 03/06/21 23:36 Discharge Ordered Location: Home [facility] Problem: an acute exacerbation [facility] Symptoms: have improved [facility] Condition: Stable [facility] Diagnosis - Seizure, Medication non compliance [facility] - Depression [facility] - Anxiety [facility] - UTI/ Urinary tract infection, site not specified [facility] Followup: [facility] - With: Private Physician - When: 1 - 2 days - Reason: Worsening of condition, Recheck today's complaints, Continuance of care, Re-evaluation by your physician Followup: [facility] - With: Pierre Hobson MD - When: 1 - 2 days - Reason: Worsening of condition, Recheck today's complaints Followup: [facility] - With: Cameron Cordero MD - When: 2 - 3 days - Reason: Worsening of condition, Recheck today's complaints Discharge Instructions: - Discharge Summary Sheet [facility] - Urinary Tract Infection, Adult, [id number] [facility] - Seizure, Adult, [id number] [facility] - Managing Depression, Adult [facility] - Managing Anxiety, Adult [facility] Forms: - Medication Reconciliation Form [facility] - Thank You Letter [facility] - Antibiotic Education [facility] - Prescription Opioid Use [facility] Prescriptions: - Cephalexin 500 mg Oral Capsule - take 1 capsule by ORAL route every 12 hours for 7 days; 14 capsule; Refills: 0, [facility] Product Selection Permitted Signatures: Dispatcher [employer] Prosper Meredith MD MD 7 Papito Bridges RN RN mr2 Corrections: (The following items were deleted from the chart) 23:42 23:41 PMHx: Anemia; mr2 mr2
[2021-03-07] MEDS ORDERED: CEPHALEXIN 250 MG CAP ONE
[2021-03-07 00:41] VITALS: BP 124/64; TEMP 98.2; O2SAT 99
== END 2021-03-06 23:49 | disposition home or self-care (01) ==
LOC: ER 20:21
DX: G40.909 Epilepsy, unspecified, not intractable, without status epilepticus (principal); Z91.14 Patient's other noncompliance with medication regimen; F32.9 Major depressive disorder, single episode, unspecified; F41.9 Anxiety disorder, unspecified
CPT/HCPCS: 36415; 70450; 80048; 80076; 80307; 80320; 80329; 81003; 81025; 85025; 85610; 85730; 93005; 96374; 99284; J1953

== ENCOUNTER 2023-05-03 21:17 | Emergency (ER) | payer SELFPAY ==
--- OUTSIDE RECORDS SUMMARY | 2023-05-03 21:19 | XMS REPORT | Continuity of Care Document ---
:1995 [address] [facility] [place] t Address [address] [place] [id number] Care Team Providers Name Role Phone Unavailable Unavailable Unavailable Problems This patient has no known problems. Allergies, Adverse Reactions, Alerts This patient has no known allergies or adverse reactions. Medications This patient has no known medications. Procedures This patient has no known procedures. Encounters Start End Encounter Admission Attending Care Care Encounter Source Date/Time Date/Time Type Type Clinicians Facility Department ID 2023-01-28 2023-01-28 Outpatient [facility] [id number] Marvel 09:41:54 09:41:54 [id number] Issac Results This patient has no known results.
[2023-05-03] MEDS ORDERED: ASPIRIN 81 MG CHEWABLE TABLET ONE (22:07)
--- NOTE | 2023-05-03 22:13 | RAD REPORT ---
EXAM DESCRIPTION: RAD - Chest Single View - 05/03/2023 9:55 pm CLINICAL HISTORY: CHEST PAIN COMPARISON: Chest Single View dated 09/21/2019 FINDINGS: Lines: None. Lungs: No evidence of edema or pneumonia. Pleural: No significant pleural effusions or pneumothorax. Cardiac: The heart size is within normal limits. Mediastinum: Within normal limits. Bones: No acute fractures. Other: None IMPRESSION: No acute cardiopulmonary disease.
[2023-05-03 22:45] LABS: Specific Gravity 1.007 (1.005-1.030)
[2023-05-03 22:59] LABS: ALT/SGPT 25 U/L (13-56); AST/SGOT 20 U/L (15-37); Albumin 3.7 g/dL (3.4-5.0); Alkaline Phosphatase 60 U/L (45-117); BUN Blood Urea Nitrogen 8 mg/dL (7-18); Bicarbonate 30 mEq/L (21-32); Bilirubin Total 0.2 mg/dL (0.2-1.0); Glomerular Filtration Rate 94 ml/min (=/>90); Glucose Level 102 mg/dL (74-106); Magnesium 2.2 mg/dL (1.6-2.4); NT PRO-BNP 76 pg/mL (<125); Potassium 3.9 mEq/L (3.5-5.1); Protein, Total 8.1 g/dL (6.4-8.2); Sodium Level 138 mEq/L (136-145); Troponin High Sensitivity 3.9 pg/mL (<58.9)
[2023-05-03 23:03] LABS: C-Reactive Protein 3.22 mg/L (<3.00); Thyroid Stimulating Hormone 0.561 uIU/mL (0.358-3.740)
[2023-05-03 23:17] LABS: Bilirubin Direct < 0.1 mg/dL (0-0.2); Bilirubin Indirect, Calculated ND mg/dL (0.2-0.8)
[2023-05-03 23:20] LABS: Protime INR 0.97
[2023-05-03 23:22] LABS: Hematocrit 37.9 % (36.0-45.0); MCV 79.5 fL (80-100); MPV 8.5 fL (7.6-11.3); Platelets 250 thou/uL (152-406); RBC Red Blood Cell Count 4.76 M/uL (3.86-4.86)
[2023-05-03] MEDS ORDERED: MORPHINE 4 MG/ML SYR ONE (23:40)
[2023-05-03] MEDS ORDERED: ONDANSETRON 4 MG/2 ML VIAL ONE (23:40)
[2023-05-03] MEDS ORDERED: DIAZEPAM 10 MG/2 ML INJ SYRINGE ONE (23:40)
--- NOTE | 2023-05-03 23:41 | ER ---
Nurse's Notes [facility] Name: Batsheva Guerrero Age: 28 yrs Sex: Female : 1995 Arrival Date: 05/03/2023 Time: 21:17 Bed 16 Private MD: Diagnosis: Anxiety disorder, unspecified;Chest pain, unspecified Presentation: 05/03 21:32 Chief complaint: Patient states: I was sitting at home and my watch said slow down and vc1 breath and all of a sudden I got short of breath and started having chest pain. Coronavirus screen: Vaccine status: Patient reports being unvaccinated. Client denies travel out of the [place] in the last 14 days. At this time, the client does not indicate any symptoms associated with coronavirus-19. Ebola Screen: Patient negative for fever greater than or equal to 101.5 degrees Fahrenheit, and additional compatible Ebola Virus Disease symptoms Patient denies exposure to infectious person. Patient denies travel to an Ebola-affected area in the 21 days before illness onset. No symptoms or risks identified at this time. Initial Sepsis Screen: Does the patient meet any 2 criteria? No. Patient's initial sepsis screen is negative. Does the patient have a suspected source of infection? No. Patient's initial sepsis screen is negative. Risk Assessment: Do you want to hurt yourself or someone else? Patient reports no desire to harm self or others. Onset of symptoms was May 03, 2023. 21:32 Method Of Arrival: Ambulatory vc1 21:32 Acuity: BULL 3 vc1 Triage Assessment: 21:35 General: Appears in no apparent distress. uncomfortable, Behavior is calm, cooperative, vc1 appropriate for age. Pain: Complains of pain in mid-sternal area Pain radiates to anterior aspect of left shoulder Pain currently is 9 out of 10 on a pain scale. Quality of pain is described as pressure, radiating, sharp, Pain began suddenly, Is continuous, Aggravated by deep breaths. EENT: No deficits noted. No signs and/or symptoms were reported regarding the EENT system. Neuro: Level of Consciousness is awake, alert, obeys commands, Oriented to person, place, time, situation, Appropriate for age. Cardiovascular: Reports chest pain, shortness of breath. Respiratory: Reports shortness of breath labored breathing Airway is patent Respiratory effort is even, unlabored, Respiratory pattern is regular, symmetrical. GI: No deficits noted. No signs and/or symptoms were reported involving the gastrointestinal system. : No deficits noted. No signs and/or symptoms were reported regarding the genitourinary system. Derm: No deficits noted. No signs and/or symptoms reported regarding the dermatologic system. Musculoskeletal: No deficits noted. No signs and/or symptoms reported regarding the musculoskeletal system. Historical: - Allergies: 21:34 No Known Allergies; vc1 - Home Meds: 21:34 None [Active]; vc1 - PMHx: 21:34 Depressive disorder; Anxiety; vc1 - PSHx: 21:34 None; vc1 - Immunization history:: Client reports having NOT received the Covid vaccine. Flu vaccine is not up to date. - Social history:: Smoking status: Reported history of juuling and/or vaping. - Family history:: not pertinent. Screenin:[address] [facility] ED Fall Risk Assessment (Adult) History of falling in the last 3 months, la4 including since admission No falls in past 3 months (0 pts) Confusion or Disorientation No (0 pts) Intoxicated or Sedated No (0 pts) Impaired Gait No (0 pts) Mobility Assist Device Used No (0 pt) Altered Elimination No (0 pt) Score/Fall Risk Level 0 - 2 = Low Risk Oriented to surroundings, Maintained a safe environment, Educated pt \T\ family on fall prevention, incl call for assistance when getting out of bed, Provided non-skid footwear, Hourly rounding (assess needs \T\ fall precautionary measures) done. Abuse screen: Denies threats or abuse. Denies injuries from another. Nutritional screening: No deficits noted. Tuberculosis screening: No symptoms or risk factors identified. Assessment: 22:29 General: Appears in no apparent distress. Behavior is calm, cooperative, appropriate la4 for age. Pain: Complains of pain in anterior aspect of right upper chest and mid-sternal area Pain radiates to left scapular area and right scapular area Pain currently is 5 out of 10 on a pain scale. Quality of pain is described as aching, Pain began Is continuous. Neuro: No deficits noted. Whipple Agitation-Sedation Scale (RASS): -1 Drowsy Level of Consciousness is awake, alert, obeys commands, Oriented to person, place, time, situation, Appropriate for age. Cardiovascular: No deficits noted. Reports chest pain, Denies nausea, vomiting, Heart tones S1 S2 Capillary refill < 3 seconds is brisk Clubbing of nail beds is absent JVD is absent Patient's skin is warm and dry. Pulses are all present. Edema is absent. Rhythm is sinus rhythm Chest pain is described as quality is squeezing. Respiratory: No deficits noted. Reports shortness of breath with onset of chest pain and sob is worse when laying down per patient Airway is patent Respiratory effort is even, unlabored, Respiratory pattern is regular, symmetrical, Breath sounds are clear bilaterally. 23:33 General: Appears in no apparent distress. Pt given valium, morphine, and zofran. la4 Medication affective and pt noted to become drowsy. Will continue to monitor pt closely for a minimum of 30 minutes prior to DC to ensure safety. Vital Signs: 21:32 BP 103 / 85; Pulse 85; Resp 16; Temp 98.2; Pulse Ox 99% ; Weight 65.77 kg; Height 5 ft. vc1 3 in. ; Pain 9/10; 22:29 BP 113 / 72; Pulse 81; Resp 18; Pulse Ox 100% ; la4 05/04 00:27 BP 106 / 60; Pulse 70; Resp 16; Temp 98.3(O); Pulse Ox 99% ; Pain 0/10; la4 05/03 21:32 Body Mass Index 25.69 (65.77 kg, 160.02 cm) vc1 05/03 21:32 Pain Scale: Adult vc1 05/04 00:27 Pain Scale: Adult la4 Vitals: 05/03 22:29 Cardiac Rhythm Assessment Regular Sinus rhythm. la4 Dee Coma Score: 22:29 Eye Response: spontaneous(4). Motor Response: obeys commands(6). Verbal Response: la4 oriented(5). Total: 15. 05/04 00:27 Eye Response: spontaneous(4). Motor Response: obeys commands(6). Verbal Response: la4 oriented(5). Total: 15. ED Course: 05/03 21:21 Patient arrived in ED. kj1 21:34 Triage completed. vc1 21:34 Arm band placed on left wrist. vc1 21:37 Ash Sena MD is Attending Physician. sp4 21:43 Toney, [place], RN is Primary Nurse. la4 21:57 XRAY Chest (1 view) In Process Unspecified. EDMS 22:29 Patient has correct armband on for positive identification. Bed in low position. Call la4 light in reach. Side rails up X2. Provided Education on: plan of care. Client placed on continuous cardiac and pulse oximetry monitoring. NIBP monitoring applied. 22:29 No provider procedures requiring assistance completed. Inserted saline lock: 20 gauge la4 in right forearm, using aseptic technique. Oxygen administration via nasal cannula \T\ 3L/min. 23:40 Abhinav Espinoza DO is Referral Physician. sp4 Administered Medications: 22:29 Drug: Aspirin PO Chewable Tablet 324 mg PO once; 81 mg tablets x 4 Route: PO; la4 23:43 Drug: morphine IVP or IV 4 mg IVP once over 4 mins Route: IVP; Infused Over: 4 mins; la4 Site: left forearm; 05/04 00:04 Follow up: Response: No adverse reaction; Pain is decreased; Anxiety decreased la4 00:28 Follow up: Response: No adverse reaction; Pain is decreased la4 05/03 23:44 Drug: Diazepam IVP 5 mg IVP once Route: IVP; Site: left forearm; la4 05/04 00:05 Follow up: Response: No adverse reaction; Pain is decreased la4 00:28 Follow up: Response: No adverse reaction la4 05/03 23:44 Drug: Ondansetron PO 4 mg PO once Route: PO; la4 05/04 00:04 Follow up: Response: No adverse reaction; Nausea is decreased la4 00:28 Follow up: Response: No adverse reaction; Pain is decreased la4 Medication: 05/03 22:29 VIS not applicable for this client. la4 Outcome: 23:41 Discharge ordered by . sp4 05/04 00:27 Patient left the ED. la4 Signatures: Dispatcher [employer] EDMS Faith Marin kj1 Patricia Lainez RN RN 1 Ash Sena MD MD sp4 Tuyet Toney RN RN la4
--- NOTE | 2023-05-03 23:41 | EDPHYS ---
Physician Documentation [facility] Name: Batsheva Guerrero Age: 28 yrs Sex: Female : 1995 Arrival Date: 05/03/2023 Time: 21:17 Bed 16 Private MD: ED Physician Ash Sena HPI: 05/03 21:37 This 28 yrs old Female presents to ER via Ambulatory with complaints of Chest sp4 Pain. 05/04 03:57 28-year-old female presents with 2 months of episodic chest pains. Patient states pains sp4 are unprovoked and can occur at any time. No exertional chest pains, patient reported some shortness of breath associated with chest pain today. Patient was at work at the [employer] today when she developed chest pains and associated anxiety. . Patient denied tobacco use denied history of diabetes or hypertension denied history of early VA in the family... Historical: - Allergies: 05/03 21:34 No Known Allergies; vc1 - Home Meds: 21:34 None [Active]; vc1 - PMHx: 21:34 Depressive disorder; Anxiety; vc1 - PSHx: 21:34 None; vc1 - Immunization history:: Client reports having NOT received the Covid vaccine. Flu vaccine is not up to date. - Social history:: Smoking status: Reported history of juuling and/or vaping. - Family history:: not pertinent. ROS: 05/04 03:57 Constitutional: Negative for fever, chills, and weight loss, Eyes: Negative for injury, sp4 pain, redness, and discharge, ENT: Negative for injury, pain, and discharge, Cardiovascular: Positive chest pains, positive shortness of breath, positive anxiety All other systems are negative, Exam: 05/03 23:24 ECG was reviewed by the Attending Physician. EKG time 2142 sp4 05/04 03:57 Constitutional: This is a well developed, well nourished patient who is awake, alert, sp4 and in no acute distress. Head/Face: Normocephalic, atraumatic. Eyes: Pupils equal round and reactive to light, extra-ocular motions intact. Lids and lashes normal. Conjunctiva and sclera are not injected. Cornea within normal limits. Periorbital areas with no swelling, redness, or edema. ENT: Nares patent. No nasal discharge, no septal abnormalities noted. Tympanic membranes are normal and external auditory canals are clear. Oropharynx with no redness, swelling, or masses, exudates, or evidence of obstruction, uvula midline. Mucous membranes moist. Neck: Trachea midline, no thyromegaly or masses palpated, and no cervical lymphadenopathy. Supple, full range of motion without nuchal rigidity, or vertebral point tenderness. Chest/axilla: Normal chest wall appearance and motion. Nontender with no deformity. No lesions are appreciated. Cardiovascular: Regular rate and rhythm with a normal S1 and S2. No gallops, murmurs, or rubs. Normal PMI, no JVD. No pulse deficits. Respiratory: Lungs have equal breath sounds bilaterally, clear to auscultation and percussion. No rales, rhonchi or wheezes noted. No increased work of breathing, no retractions or nasal flaring. Abdomen/GI: Soft, non-tender, with normal bowel sounds. No distension or tympany. No guarding or rebound. No evidence of tenderness throughout. Back: No spinal tenderness. No costovertebral tenderness. Skin: Warm, dry with normal turgor. Normal color with no rashes, no lesions, and no evidence of cellulitis. MS/ Extremity: Pulses equal, no cyanosis. Neurovascular intact. Full, normal range of motion. Neuro: Awake and alert, GCS 15, oriented to person, place, time, and situation. Cranial nerves II-XII grossly intact. Motor strength 5/5 in all extremities. Sensory grossly intact. Psych: Awake, alert, with orientation to person, place and time. Behavior, mood, and affect are within normal limits Vital Signs: 05/03 21:32 BP 103 / 85; Pulse 85; Resp 16; Temp 98.2; Pulse Ox 99% ; Weight 65.77 kg; Height 5 ft. vc1 3 in. ; Pain 9/10; 22:29 BP 113 / 72; Pulse 81; Resp 18; Pulse Ox 100% ; la4 05/04 00:27 BP 106 / 60; Pulse 70; Resp 16; Temp 98.3(O); Pulse Ox 99% ; Pain 0/10; la4 05/03 21:32 Body Mass Index 25.69 (65.77 kg, 160.02 cm) vc1 05/03 21:32 Pain Scale: Adult vc1 05/04 00:27 Pain Scale: Adult la4 Dee Coma Score: 05/03 22:29 Eye Response: spontaneous(4). Motor Response: obeys commands(6). Verbal Response: la4 oriented(5). Total: 15. 05/04 00:27 Eye Response: spontaneous(4). Motor Response: obeys commands(6). Verbal Response: la4 oriented(5). Total: 15. MDM: 05/03 21:38 Patient medically screened. sp4 05/04 03:57 Differential diagnosis: abnormal EKG, acute pericarditis, anxiety, chest wall pain, sp4 costochondritis, esophagitis, gastritis. HEART Score: History: Slightly Suspicious (0), ECG: Normal (0), Age: < or = 45 years (0), Risk Factors: No Risk Factors Known (0), Troponin: < or = 1 x Normal Limit (0), Total Score = 0. Data reviewed: vital signs, nurses notes, old medical records, lab test result(s), EKG, radiologic studies, plain films. ED course: Patient has no sign of acute ACS, she has sign of anxiety related chest pains and stress related chest pains. Patient developed acute anxiety attack in the ER . Patient reports she feels better after medications. Will prescribe Klonopin as needed anxiety. Otherwise stable for discharge home. . 05/03 21:37 Order name: Basic Metabolic Panel; Complete Time: 23:24 sp4 05/03 21:37 Order name: CBC with Diff; Complete Time: 23:52 sp4 05/03 21:37 Order name: LFT's; Complete Time: 23:24 sp4 05/03 21:37 Order name: Magnesium; Complete Time: 23:24 sp4 05/03 21:37 Order name: NT PRO-BNP; Complete Time: 23:24 sp4 05/03 21:37 Order name: PT-INR; Complete Time: 23:24 sp4 05/03 21:37 Order name: Troponin HS; Complete Time: 23:24 sp4 05/03 21:38 Order name: Test, Urine; Complete Time: 23:08 sp4 05/03 21:52 Order name: CRP; Complete Time: 23:08 sp4 05/03 21:52 Order name: Lipase; Complete Time: 23:08 sp4 05/03 21:52 Order name: TSH; Complete Time: 23:08 sp4 05/03 21:52 Order name: T4 Free; Complete Time: 23:08 sp4 05/03 21:37 Order name: XRAY Chest (1 view); Complete Time: 23:08 sp4 05/03 21:37 Order name: EKG; Complete Time: 21:38 sp4 05/03 21:37 Order name: Cardiac monitoring; Complete Time: 22:29 sp4 05/03 21:37 Order name: EKG - Nurse/Tech; Complete Time: 21:45 sp4 05/03 21:37 Order name: IV Saline Lock; Complete Time: 22:29 sp4 05/03 21:37 Order name: Labs collected and sent; Complete Time: 22:29 sp4 05/03 21:37 Order name: O2 Per Protocol; Complete Time: 22:29 sp4 05/03 21:37 Order name: O2 Sat Monitoring; Complete Time: 22:29 sp4 EC/21 23:24 Rate is 78 beats/min. Rhythm is regular, Normal Sinus Rhythm. QRS [place] is Normal. MO sp4 interval is normal. QRS interval is normal. QT interval is normal. No Q waves. T waves are Normal. No ST changes noted. Clinical impression: No evidence of ischemia. Interpreted by me. Reviewed by me. Administered Medications: 22:29 Drug: Aspirin PO Chewable Tablet 324 mg PO once; 81 mg tablets x 4 Route: PO; la4 23:43 Drug: morphine IVP or IV 4 mg IVP once over 4 mins Route: IVP; Infused Over: 4 mins; la4 Site: left forearm; 05/04 00:04 Follow up: Response: No adverse reaction; Pain is decreased; Anxiety decreased la4 00:28 Follow up: Response: No adverse reaction; Pain is decreased la4 05/03 23:44 Drug: Diazepam IVP 5 mg IVP once Route: IVP; Site: left forearm; la4 05/04 00:05 Follow up: Response: No adverse reaction; Pain is decreased la4 00:28 Follow up: Response: No adverse reaction la4 05/03 23:44 Drug: Ondansetron PO 4 mg PO once Route: PO; la4 05/04 00:04 Follow up: Response: No adverse reaction; Nausea is decreased la4 00:28 Follow up: Response: No adverse reaction; Pain is decreased la4 Disposition Summary: 05/03/23 23:41 Discharge Ordered Problem: new sp4 Symptoms: have improved sp4 Condition: Stable sp4 Diagnosis - Anxiety disorder, unspecified sp4 - Chest pain, unspecified sp4 Followup: sp4 - With: Private Physician - When: 7 - 10 days - Reason: Recheck today's complaints Followup: sp4 - With: Abhinav Espinoza DO - When: 7 - 10 days - Reason: Recheck today's complaints Discharge Instructions: - Discharge Summary Sheet sp4 - Managing Anxiety, Adult sp4 Forms: - Patient Portal Instructions sp4 Prescriptions: - clonazepam 1 mg Oral tablet - take 1 tablet ORAL route once daily PRN anxiety attacks; 20 tablet; Refills: 0, sp4 Product Selection Permitted Signatures: Dispatcher [employer] Patricia Alicea RN RN vc1 Ash Sena MD MD sp4 Tuyet Toney RN RN la4
[2023-05-04 00:38] VITALS: BP 106/60; TEMP 98.3; O2SAT 99
--- NOTE | 2023-05-04 16:50 | EKG ---
Test Date: 2023-05-03 Test Time: 21:42:52 Meat Inspector: TALIA MEASUREMENT RESULTS: Intervals: Rate: 78 OH: 142 QRSD: 70 QT: 364 QTc: 414 [place]: P: 52 OH: 142 QRS: 79 T: -4 INTERPRETIVE STATEMENTS: Normal sinus rhythm Nonspecific T wave abnormality Abnormal ECG Compared to ECG 03/06/2021 20:52:05 T-wave abnormality now present Electronically Signed On 05-04-23 16:48:55 [employer] [place] by Emeka Valentin
== END 2023-05-04 00:27 | disposition home or self-care (01) ==
LOC: ER 21:17
DX: F41.9 Anxiety disorder, unspecified (principal)
CPT/HCPCS: 36415; 71045; 80048; 80076; 81025; 83690; 83735; 83880; 84439; 84443; 84484; 85025; 85610; 86140; 93005; 96374; 96375; 99284; J2405; J3360

== ENCOUNTER 2023-09-13 19:18 | Emergency (ER) | payer SELFPAY ==
--- OUTSIDE RECORDS SUMMARY | 2023-09-13 19:20 | XMS REPORT | Continuity of Care Document ---
Author Name Unknown Address [address] [place] [address] [address] [place] [address] [facility] Address [address] [place] [address] [address] [place] [address] Care Team Providers Care Senior Computer Specialist Name Role Phone Unavailable Unavailable Unavailable Encounters Start Date/Time End Date/Time Encounter Type Admission Type Attending [facility] Care Facility Care Department Encounter ID Source 2023-09-12 14:18:01 2023-09-12 14:18:01 Outpatient [facility] [id number] [place] 2023-01-28 09:41:54 2023-01-28 09:41:54 Outpatient [facility] [id number] [place]
--- NOTE | 2023-09-13 22:20 | RAD REPORT ---
EXAM DESCRIPTION: CT - Lower Ext Wo Con W/ Mpr - 09/13/2023 10:06 pm CLINICAL HISTORY: trauma, bruising, swelling Trauma, pain and swelling COMPARISON: No comparisons FINDINGS: Mild edema is seen in the lower extremity soft tissue. No acute fracture, dislocation or a ggressive marrow pattern. No radiopaque foreign body. All CT scans are performed using dose optimization technique as appropriate and may include automated exposure control or mA/KV adjustment according to patient size. IMPRESSION: No acute abnormality is detected.
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
[2023-09-14 00:29] VITALS: BP 122/79; TEMP 98.1; O2SAT 100
== END 2023-09-13 23:26 | disposition home or self-care (01) ==
LOC: ER 19:18
DX: S80.11XA Contusion of right lower leg, initial encounter (principal); W22.8XXA Striking against or struck by other objects, initial encounter
CPT/HCPCS: 73700; 76377; 99283